=== PATIENT | female | born 1970 | race Two or more races ===

== ENCOUNTER 2019-03-21 05:46 | Inpatient (IN) | payer OTHER ==
[2019-03-17 16:48] LABS: BASOPHILS % 0.4 % (0.0-1.0); EOSINOPHILS # (AUTO) 0.2 (0.0-0.4); EOSINOPHILS % 2.3 % (0.0-6.0); HEMATOCRIT 39.7 % (34.2-44.1); HEMOGLOBIN 12.8 g/dL (12.0-16.0); LYMPHOCYTES # (AUTO) 2.6 (1.0-3.2); MEAN CORPUSCULAR HEMOGLOBIN 29.7 pg (28-32); MEAN CORPUSCULAR HGB CONC 32.2 g/dL (31-35); MEAN CORPUSCULAR VOLUME 92.1 fL (81-99); MONOCYTES # (AUTO) 0.6 (0.2-0.8); MONOCYTES % 7.3 % (4.4-11.3); NEUTROPHILS # (AUTO) 4.5 (2.1-6.9); NEUTROPHILS % 56.7 % (38.7-80.0); PLATELET COUNT 408 x10e3/uL (140-360); RED BLOOD COUNT 4.31 x10e6/uL (3.6-5.1); RED CELL DISTRIBUTION WIDTH 12.5 % (11.7-14.4)
--- NOTE | 2019-03-17 17:14 | Diagnostic Imaging Report ---
Chest, PA and lateral. History: Preoperative evaluation for right hip surgery. Comparison: None available. Discussion: The cardiomediastinal silhouette and pulmonary vasculature are within normal limits. The lungs are clear without evidence of consolidation or effusion. There are no acute osseous abnormalities. IMPRESSION: No radiographic evidence of acute cardiopulmonary abnormality. Signed by: Tevin Pierre MD on 03/17/2019 5:10 PM
[~2019-03-21] VITALS: Ht 157.5 cm; Wt 68.0 kg
[~2019-03-21 05:46] MED LIST: AMLODIPINE BESYL5 MG PO; NORCO 10-325 T1 EACH PO; PANTOPRAZOLE SO20 MG PO
[2019-03-21] MEDS ORDERED: CELECOXIB 200 MG CAP ONE (06:28)
[2019-03-21] MEDS ORDERED: DEXAMETHASONE SOD PHOS 10 MG/1 ML VIAL ONE (06:28)
[2019-03-21] MEDS ORDERED: CEFAZOLIN SOD 1 GM/NS 50ML 100 ML IV ONE (06:29)
[2019-03-21] MEDS ORDERED: GABAPENTIN 300 MG CAP ONE (06:29)
[2019-03-21] MEDS ORDERED: BACITRACIN 50,000 UNIT VIAL ONE (06:39)
[2019-03-21] MEDS ORDERED: TRANEXAMIC ACID 1,000 MG/10 ML ML ONE (06:39)
[2019-03-21] MEDS ORDERED: SODIUM CHLORIDE 0.9% 500ML 500 ML ONE (06:39)
[2019-03-21] MEDS ORDERED: VANCOMYCIN HCL 1,000 MG ONE (06:39)
[2019-03-21] MEDS ORDERED: ROPIVACAINE 246.25 MG, EPINEPHRINE HCL 1:1000 1ML 0.5 MG, CLONIDINE HCL 0.08 MG, KETORO... INJ ONE ×5 (07:30)
[2019-03-21] MEDS ORDERED: BUPIVACAINE 7.5MG/ML /DEXTROSE 82.5MG/ML 2 ML AMP INJ ONE (07:49)
[2019-03-21] MEDS ORDERED: DIPHENHYDRAMINE HCL INJ 50 MG/ML VIAL IM/IV PRN (09:15)
[2019-03-21] MEDS ORDERED: ONDANSETRON HCL INJ 2MG/ML 2ML 2 MG/ML VIAL IV PRN (09:15)
[2019-03-21] MEDS ORDERED: PROMETHAZINE HCL (IM) 25 MG/ML VIAL IM PRN (09:15)
[2019-03-21] MEDS ORDERED: DOCUSATE SODIUM 100 MG CAP PO PRN (09:15)
[2019-03-21] MEDS ORDERED: HYDROCODONE/APAP 5MG-325MG TAB PO PRN (09:15)
[2019-03-21] MEDS ORDERED: ACETAMINOPHEN 650 MG SUPP PR PRN (09:15)
--- NOTE | 2019-03-21 10:46 | Operative Report ---
DATE OF PROCEDURE: 03/21/2019 SURGEON: Tobias Miranda MD MANUFACTURING TECHNOLOGY PROFESSOR: Cristhian Starr, certified PA. PREOPERATIVE DIAGNOSES: FICAT stage IIIB avascular necrosis, right hip. POSTOPERATIVE DIAGNOSIS: FICAT stage IIIB avascular necrosis, right hip. PROCEDURE: Right total hip arthroplasty. INDICATIONS: The patient is a 48-year-old lady, who has avascular necrosis of her right and left hip. She has notable subchondral collapse. The findings and options have been discussed. She would like to proceed with a right total hip replacement. The risks and benefits of the procedure have been explained. She states she understands and wishes to proceed. DESCRIPTION OF PROCEDURE: The patient was brought to the operating room and given a spinal anesthetic. She received prophylactic antibiotics and tranexamic acid in the holding area. She was positioned in the left lateral decubitus position. Her right hip was prepped and draped in a sterile manner. A preoperative time-out was performed. A posterior approach was made to the right hip. Limited incision was made. Care was taken to avoid injury to the sciatic nerve. Hemostasis was obtained with electrocautery. A deep self-retaining Charnley retractor was placed. The posterior capsule was exposed and further hemostasis was obtained with electrocautery. The short external rotators were released while preserving the piriformis. The posterior capsule was carefully exposed. A capsulotomy was performed. A large blood-tinged effusion of the hip joint was decompressed. The hip was dislocated and an oscillating saw was used to resect the femoral head. Advanced subchondral collapse was noted. Acetabular retractors were placed. The labral remnant was excised with a long-handled knife. The true floor of the acetabulum was established with a 46 mm reamer. The socket was then sequentially reamed to 51 mm; this accomplished bleeding hemispherical cancellous bone. The hip was thoroughly irrigated several times with a shower tip pulsatile lavage. Additional irrigation with a diluted mixture of polymyxin and vancomycin spray was performed. A Jo Ann Biomet 52 mm outer diameter OsseoTi socket was then impacted into place. Good fixation was obtained. Fixation was augmented with a single 20 mm cancellous screw placed into the ilium. A highly cross-linked polyethylene liner with a 36 mm inner diameter was then seated into place. Care was taken to make sure that there was no evidence of soft tissue interposition. The socket was packed with a moistly soaked lap sponge and attention was directed towards the proximal femur. A box cutting osteotome and taper pin reamer were used to establish entry to the femoral canal. The Taperloc broaches were then impacted. A size 10 stem had good canal fill and stability for trial reduction. I felt that a -3 femoral head provided appropriate soft tissue balancing and sikh of limb length. The hip was put through a full arc of motion and had excellent stability. The trial implants were removed. The hip was thoroughly further irrigated with a shower tip pulsatile lavage. The stem was seated and the ceramic head was seated onto the stem with a -3 trunnion. A final reduction was performed. The posterior capsule was repaired with interrupted #2 Ethibond. The hip was further irrigated prior to placing 500 mg of vancomycin powder into the deep wound. The fascia was closed with interrupted #2 Ethibond. The skin was closed with subcuticular Vicryl and manjinder. A sterile Aquacel bandage was applied. The patient was returned to the supine position and transported to recovery room in stable condition. Blood loss was approximately 50 mL. All needle and sponge counts were correct. Tobias Miranda MD DR/ARELIS /[id number]
--- NOTE | 2019-03-21 10:51 | Diagnostic Imaging Report ---
EXAM: PELVIS AP 1-2 VIEWS DATE: 03/21/2019 9:05 AM INDICATION: Postop, status post right hip arthroplasty COMPARISON: None FINDINGS: There are postsurgical changes from recent total right hip replacement. Hardware appears intact and in anatomic alignment. There is no evidence for acute fracture or dislocation. There is expected subcutaneous emphysema noted. Overlying skin manjinder noted. IMPRESSION: Expected postsurgical changes from recent right hip arthroplasty. Signed by: Dr. Corey Mccracken MD on 03/21/2019 10:47 AM
[2019-03-21] MEDS: ACETAMINOPHEN 1000 MG/100 ML IV SCH ×3 (12:00→23:35)
[2019-03-21] MEDS ORDERED: FENTANYL CITRATE/PF 100MCG/2 ML INJ ONE ×2 (12:04→17:47)
--- NOTE | 2019-03-21 13:26 | NUR ---
RECEIVED PATIENT FROM RECOVERY. PATIENT A/OX3, EVEN RESPIRATIONS ON RA. LUNG SOUNDS CLEAR TO AUSCULTATION. RIGHT HIP DRESSING CLEAN, DRY, AND INTACT. ABDUCTOR PILLOW IN PLACE. LEFT FA 20 GAUGE IV INTACT/PATENT. CHARLINE HOSE TO LEFT LEG. FOOT PUMPS BILATERALLY. BED LOW, WHEELS LOCKED, SIDE RAILS X2. CALL LIGHT IN REACH WILL CONTINUE TO MONITOR PATIENT.
[2019-03-21 13:51] VITALS: BP 109/73
[2019-03-21 14:00] VITALS: BP 109/73
[2019-03-21 14:03] VITALS: BP 109/73
[2019-03-21] MEDS: SODIUM CHLORIDE 0.9% 1000ML 1,000 ML IV SCH (14:51)
[2019-03-21] MEDS: HYDROCODONE/APAP 7.5MG-325MG 1 EA TAB PO PRN ×2 (14:58→19:39)
--- NOTE | 2019-03-21 16:05 | NUR ---
PATIENT HAS VOIDED SINCE SURGERY.
[2019-03-21 16:34] VITALS: BP 109/72
[2019-03-21] MEDS ORDERED: CELECOXIB 100 MG CAP PO SCH (17:00)
[2019-03-21] MEDS: CEFAZOLIN SOD 1 GM/NS 50ML 50 ML IV SCH (17:13)
[2019-03-21] MEDS: ASPIRIN 325 MG TAB PO SCH (17:13)
[2019-03-21] MEDS: CELECOXIB 200 MG CAP PO SCH (17:13)
[2019-03-21] MEDS ORDERED: MIDAZOLAM HCL 2 MG/2 ML VIAL ONE (17:47)
[2019-03-21] MEDS: KETOROLAC TROMETHAMINE 30 MG/ML VIAL IV PRN (18:17)
--- NOTE | 2019-03-21 19:05 | NUR ---
Patient visited in room during nursing rounds. Patient alert and oriented x3. at bedside. S/P Right total hip Arthroplasty. Surgical incision with manjinder and covered with Aquacel dressing (C/D/I). Abductory foam in between legs. TEDs to left leg and bilateral foot pumps on. IVF (NS at 100ml/hr). Intermittent pain on right hip and will be medicated accordingly. Call zhao within reach.
[2019-03-21 20:00] VITALS: BP 135/79
[2019-03-21] MEDS ORDERED: ZOLPIDEM TARTRATE 5 MG TAB PO PRN (21:00)
[2019-03-22] VITALS: BP 98/57
[2019-03-22] MEDS: KETOROLAC TROMETHAMINE 30 MG/ML VIAL IV PRN (00:23)
[2019-03-22] MEDS: CEFAZOLIN SOD 1 GM/NS 50ML 50 ML IV SCH ×2 (00:42→09:26)
[2019-03-22 04:00] VITALS: BP 97/63
--- NOTE | 2019-03-22 05:53 | Consultation ---
DATE OF CONSULTATION: 03/22/2019 REASON FOR CONSULTATION: Postop medical management. HISTORY OF PRESENT ILLNESS: The patient is a 48-year-old lady, status post right hip arthroplasty for end-stage osteoarthritis of the right hip. She is doing well postoperatively with minimal pain and she denies fever, chills, nausea, vomiting, headache, shortness of breath, or dizziness. PAST MEDICAL HISTORY: Significant for gastroesophageal reflux disease, gout, and hypertension. MEDICATIONS: See MAR. ALLERGIES: NONE. SOCIAL HISTORY: She does smoke, but less than one pack per day. 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 FAMILY HISTORY: High blood pressure and strokes. PHYSICAL EXAMINATION: VITAL SIGNS: Temperature 96.6, pulse 67, blood pressure 98/57, sats 98% on room air. GENERAL: No apparent distress, lying in bed. NECK: Supple. No lymphadenopathy. CARDIOVASCULAR: Regular rate and rhythm. LUNGS: Clear to auscultation bilaterally. ABDOMEN: Good bowel sounds. Soft, nontender. EXTREMITIES: No clubbing or cyanosis. NEUROLOGIC: Nonfocal. ASSESSMENT AND PLAN: 1. Right hip pain. We will continue with physical therapy and pain control. 2. Anemia, check CBC. 3. Hypertension. Continue to monitor since she is a little hypotensive at the time, but asymptomatic. 4. Reflux disease. We will restart her medicines at discharge. Please see hospital chart for full details. MD JEWEL Joyner/ARELIS /[id number]
[2019-03-22] MEDS: ACETAMINOPHEN 1000 MG/100 ML IV SCH (06:00)
[2019-03-22 06:12] LABS: HEMATOCRIT 30.9 % (34.2-44.1); HEMOGLOBIN 9.6 g/dL (12.0-16.0)
[2019-03-22] MEDS: SODIUM CHLORIDE 0.9% 1000ML 1,000 ML IV SCH (06:20)
[2019-03-22] MEDS: HYDROCODONE/APAP 7.5MG-325MG 1 EA TAB PO PRN (06:23)
--- NOTE | 2019-03-22 07:03 | NUR ---
Received patient lying in bed with eyes open. PT is currently working with patient at this time. Respiration even and unlabored without SOB. at bedside.
[2019-03-22 08:14] VITALS: BP 118/79
[2019-03-22] MEDS ORDERED: ACETAMINOPHEN 1000 MG/100 ML IV PRN (09:15)
[2019-03-22] MEDS: CELECOXIB 200 MG CAP PO SCH (09:26)
[2019-03-22] MEDS: ASPIRIN 325 MG TAB PO SCH (09:26)
[2019-03-22 10:12] VITALS: BP 118/79
--- NOTE | 2019-03-22 10:27 | NUR ---
Order received for DME and HH. Patient states she does not have DME benefits with her insurance. Has an aluminum walker at home already. We called [facility] supply - 3:1 commodes start at 57 dollars. Called home patient care coordinator - no out of network benefits so they will not be able to see her. New order from Dr. Miranda's office to send info to [employer]. Faxed to [phone]. Card with CM's number left with patient to follow up about which home health company
--- NOTE | 2019-03-22 10:45 | NUR ---
Discontinued left FA PIV. Catheter tip intact, no bleeding noted. Call light in reach.
--- NOTE | 2019-03-22 11:13 | NUR ---
Transported patient via wheelchair to private vehicle to discharge. All belongings are taken by family member.
--- NOTE | 2019-03-22 12:00 | NUR ---
Info sent to [facility]. Fax received, shows [employer] to see patient. Called [phone], spoke with Mr. Mario, provided number for [employer] [phone] for them to follow up, dates on fax show 03/23 for initial RN and 03/24 for PT
--- OUTSIDE RECORDS SUMMARY | 2019-03-24 13:04 | XMS REPORT ---
Author Author [facility] Address Unknown Phone Unavailable Care Team Providers Care Cpc Name Role Phone JUAN LEON Unavailable Unavailable Problems This patient has no known problems. Allergies, Adverse Reactions, Alerts This patient has no known allergies or adverse reactions. Medications This patient has no known medications. Results Test Description Test Time Test Comments Text Results Atomic Results Result Comments PELVIS AP 1-2 VIEWS 2019-03-21 10:44:00 [place] [address] Patient Name: MARYBETH WALLACE MR #: [id number] : 1970 Age/Sex: 48/F Req #: [id number] [facility] Physician: JUAN LEON MD Ordered by: JUAN LEON MD Report #: [id number] Location: PACU V Room/Bed: V PACU-1 Procedure: [id number] DX/PELVIS AP 1-2 VIEWS Exam Date: 03/21/19 Exam Time: 0949 REPORT STATUS: Signed EXAM: PELVIS AP 1-2 VIEWS DATE: 03/21/2019 9:05 AM INDICATION: Postop, status post right hip arthroplasty COMPARISON: None FINDINGS: There are postsurgical changes from recent total right hip replacement. Hardware appears intact and in anatomic alignment. There is no evidence for acute fracture or dislocation. There is expected subcutaneous emphysema noted. Overlying skin manjinder noted. IMPRESSION: Expected postsurgical changes from recent right hip arthroplasty. Signed by: Dr. Corey Mccracken MD on 03/21/2019 10:47 AM Dictated By: COREY MCCRACKEN MD 46 COPY TO: JUAN LEON MD CHEST 2 VIEWS 2019-03-17 17:10:00 [place] [address] Patient Name: MARYBETH WALLACE MR #: [id number] : 1970 Age/Sex: 48/F Req #: [id number] Adm Physician: Ordered by: JUAN LEON MD Report #: [id number] Location: OR Room/Bed: Procedure: [id number] DX/CHEST 2 VIEWS Exam Date: 03/17/19 Exam Time: 1630 REPORT STATUS: Signed Chest, PA and lateral. History: Preoperative evaluation for right hip surgery. Comparison: None available. Discussion: The cardiomediastinal silhouette and pulmonary vasculature are within normal limits. The lungs are clear without evidence of consolidation or effusion. There are no acute osseous abnormalities. IMPRESSION: No radiographic evidence of acute cardiopulmonary abnormality. Signed by: Tevin Gonzalez MD on 03/17/2019 5:10 PM Dictated By: TEVIN GONZALEZ MD 09 Transcribed By: KARRIE on 03/17/191709 COPY TO: JUAN LEON MD
--- NOTE | 2019-05-02 04:35 | Pre Op History & Physical ---
CHIEF COMPLAINT: Right hip pain. HISTORY OF PRESENT ILLNESS: This patient is a 48-year-old female with complains of right hip pain for over a year. She denies any trauma to the right hip. She states the pain is cut progressively worse. She localizes pain to the right groin. She states the pain radiates down her leg. She has tried Tylenol and Osteo Bi-Flex without lasting relief. PAST MEDICAL HISTORY: Shows acid reflux, gout, and high blood pressure. PAST SURGICAL HISTORY: None. SOCIAL HISTORY: The patient states she drinks 1 to 2 drinks a day. She denies any drug use. She states she smokes a few cigarettes a day. 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 FAMILY HISTORY: High blood pressure, stroke. CURRENT MEDICATIONS: Amlodipine and pantoprazole. ALLERGIES: NO KNOWN DRUG ALLERGIES. REVIEW OF SYSTEMS: All normal, except right hip pain. PHYSICAL EXAMINATION: GENERAL: This is a well-nourished female, in no apparent distress. She is awake, alert, and oriented appropriately. Her mood and affect are appropriate. HEAD: Normocephalic, atraumatic. NECK: Supple without any masses. CHEST: Clear to auscultation bilaterally. CARDIAC: Regular rate and rhythm. FOCUSED EXAM: In general, she ambulates with the assistance of a cane with an obvious antalgic gait favoring the right side. She is able to get up down from the examination table. Her limb lengths are grossly equal. She has severely diminished passive range of motion with pain in the right hip. The outer thighs are soft and nontender. SKIN: Normal. Distal neurovascular exam is normal. IMAGING: X-rays show Ficat stage IV avascular necrosis in the right hip. The findings and options were discussed with the patient. She has advanced avascular necrosis in the right hip. Definitive treatment would be a right total hip replacement. The risks and benefits were explained. The patient states she understands and wishes to proceed. Dictated by Cristhian Starr PA-C MD THONG Galicia/ARELIS /[id number]
--- NOTE | 2019-05-02 12:02 | Discharge Summary ---
CHIEF COMPLAINT: Right hip pain. HISTORY OF PRESENT ILLNESS: This patient is a 48-year-old female, who is suffering for right hip pain for over a year. Her x-rays are consistent with advanced AVN. The findings were discussed, definitive treatment would be a right total hip replacement. The risks and benefits were explained. The patient states she understands and wishes to proceed. HOSPITAL COURSE: The patient underwent a right total hip replacement without complications. She was then transferred to the recovery room in the floor in stable condition. She was followed by Dr. Bee for postop medical management. She did nicely with physical therapy and remained stable through her hospital stay. She was able to be discharged home on postop day #1. PRINCIPAL DIAGNOSIS: Avascular necrosis, right hip. PRINCIPAL PROCEDURE: Right total hip arthroplasty. DISCHARGE INSTRUCTIONS: The patient was discharged home with home health and physical therapy arranged. She was to be weightbearing as tolerated with a rolling walker. She was to follow posterior precautions. She was to resume her home medications as directed. She was to take aspirin twice a day for deep venous thrombosis prophylaxis. She was to follow up in our office in roughly 8 to 10 days. Dictated by Cristhian Starr PA-C MD THONG Galicia/ARELIS /[id number]
== END 2019-03-22 11:14 | disposition home or self-care (01) | DRG 470 ==
LOC: OR 05:46 → PACU V 09:07 → MED/SURG 13:29
PROVIDERS: ADMIT Specialist; ATTEND Specialist
PROC: 0SR906A Replacement of Right Hip Joint with Oxidized Zirconium on Polyethylene Synthetic Substitute, Uncemented, Open Approach (ICD-10-PCS; principal; 2019-03-21 08:00)
DX: M87.051 Idiopathic aseptic necrosis of right femur (principal); I10 Essential (primary) hypertension; D64.9 Anemia, unspecified; K21.9 Gastro-esophageal reflux disease without esophagitis; M10.9 Gout, unspecified; F17.200 Nicotine dependence, unspecified, uncomplicated; F10.20 Alcohol dependence, uncomplicated; I95.9 Hypotension, unspecified
CPT/HCPCS: 36415; 71046; 72170; 85014; 85018; 85025; 86850; 86900; C1713; J0171; J0690; J1100; J1885; J2250; J2795; J3010; J3370; J7030; J7040